=== PATIENT | female | born 1990 | race Caucasian/White ===

== ENCOUNTER 2023-04-12 21:46 | Emergency (ER) | payer BC ==
[2023-04-12 22:12] LABS: EOSINOPHILS ABSOLUTE AUTO 0.2 K/mm3 (0.0-0.4); EOSINOPHILS PERCENT AUTO 2.2 % (0.0-6.0); HEMOGLOBIN 13.7 gm/dl (12.0-16.0); IMMATURE GRAN ABSOLUTE AUTO 0.02 K/mm3 (0.00-0.05); IMMATURE GRAN PERCENT AUTO 0.2 % (0.0-0.4); LYMPHOCYTES ABSOLUTE AUTO 2.6 K/mm3 (1.0-4.8); LYMPHOCYTES PERCENT AUTO 32.6 % (24.0-44.0); MEAN CORPUSCULAR HEMOGLOBIN 30.3 pg (28.0-32.0); MEAN CORPUSCULAR HGB CONC 35.1 g/dl (32.0-36.0); MEAN CORPUSCULAR VOLUME 86.3 fl (83.0-99.0); MEAN PLATELET VOLUME 8.3 fl (9.4-12.3); MONOCYTES ABSOLUTE AUTO 0.4 K/mm3 (0.0-0.8); MONOCYTES PERCENT AUTO 5.3 % (0.0-8.0); NEUTROPHILS ABSOLUTE AUTO 4.8 K/mm3 (1.8-7.7); NEUTROPHILS PERCENT AUTO 59.7 % (41.0-71.0); PLATELET COUNT,PLT 300 K/mm3 (150-400); RED BLOOD CELL COUNT 4.52 M/mm3 (4.10-5.30); WHITE BLOOD CELL COUNT,WBC 8.06 K/mm3 (3.9-11.3)
[2023-04-12 22:36] LABS: A/G RATIO 1.1 (1-2); ANION GAP 12.3 (5-15); BILIRUBIN TOTAL 0.2 mg/dL (0.2-1.0); CALCIUM 9.5 mg/dL (8.5-10.1); CREATININE 0.6 mg/dL (0.55-1.02); EST CRCL DRUG DOSING (CG) 129.69 mL/min; POTASSIUM,K 3.3 mEq/L (3.5-5.1); PROTEIN TOTAL,TP 7.7 g/dl (6.4-8.2)
== END 2023-04-12 23:15 | disposition home or self-care (01) ==
LOC: JD.ED 21:46
DX: O20.9 Hemorrhage in early pregnancy, unspecified (principal); Z86.16 Personal history of COVID-19; Z3A.08 8 weeks gestation of pregnancy
CPT/HCPCS: 36415; 76817; 76817-26; 80053; 84702; 85025; 86900; 86901; 99282; 99284

== ENCOUNTER 2023-11-11 11:15 | Inpatient (IN) | payer BC ==
[2023-11-11] MEDS ORDERED: Sodium Chloride 0.9% 10 ML Syringe FLUSH PRN (13:11)
[2023-11-11] MEDS ORDERED: Lidocaine 1% 50 ML MDV INJECT PRN (13:11)
[2023-11-11] MEDS ORDERED: Nalbuphine 10 MG/ML Syringe IVPUSH PRN (13:11)
[2023-11-11] MEDS ORDERED: Oxytocin/Lactated Ringers 30 UNIT/500 ML BAG IV SCH (13:15)
[2023-11-11 13:42] LABS: BASOPHILS PERCENT AUTO 0.1 % (0.0-1.0); HEMATOCRIT 37.9 % (37.0-47.0); HEMOGLOBIN 12.9 gm/dl (12.0-16.0); IMMATURE GRAN ABSOLUTE AUTO 0.03 K/mm3 (0.00-0.05); IMMATURE GRAN PERCENT AUTO 0.3 % (0.0-0.4); LYMPHOCYTES ABSOLUTE AUTO 1.5 K/mm3 (1.0-4.8); LYMPHOCYTES PERCENT AUTO 14.1 % (24.0-44.0); MEAN CORPUSCULAR HEMOGLOBIN 30.8 pg (28.0-32.0); MEAN CORPUSCULAR VOLUME 90.5 fl (83.0-99.0); MEAN PLATELET VOLUME 9.7 fl (9.4-12.3); MONOCYTES ABSOLUTE AUTO 0.4 K/mm3 (0.0-0.8); NEUTROPHILS ABSOLUTE AUTO 8.4 K/mm3 (1.8-7.7); NEUTROPHILS PERCENT AUTO 81.5 % (41.0-71.0); PLATELET COUNT,PLT 193 K/mm3 (150-400); RED BLOOD CELL COUNT 4.19 M/mm3 (4.10-5.30); WHITE BLOOD CELL COUNT,WBC 10.35 K/mm3 (3.9-11.3)
[2023-11-11] MEDS: Oxytocin/Lactated Ringers 30 UNIT/500 ML BAG IV SCH (15:26)
[2023-11-11] MEDS: Lactated Ringers 1,000 ML IV SCH (15:26)
[2023-11-11] MEDS ORDERED: ePHEDrine 50 MG/ML SDV IVPUSH PRN (18:52)
[2023-11-11] MEDS ORDERED: diphenhydrAMINE 50 MG/ML SDV IVPUSH PRN (18:52)
[2023-11-11] MEDS: Bupivacaine/fentaNYL/NS 100 ML Bag EPIDUR PRN (18:58)
[2023-11-11] MEDS: fentaNYL 100 MCG/2 ML SDV EPIDUR PRN (18:58)
[2023-11-12] MEDS ORDERED: Bupivacaine 0.25% 10 ML SDV ONE
[2023-11-12] MEDS: Ondansetron 4 MG/2 ML SDV IVPUSH PRN (01:28)
[2023-11-12] MEDS ORDERED: Witch Hazel Medicated Pads 40/Jar TOP PRN (05:47)
[2023-11-12] MEDS ORDERED: Benzocaine/Menthol 20%-0.5% Spray 78 GM Cannister TOP PRN (05:47)
[2023-11-12] MEDS: Ibuprofen 600 MG Tab PO SCH (08:29)
[2023-11-12] MEDS: Acetaminophen 325 MG Tab PO PRN (11:54)
[2023-11-13] MEDS: Docusate Sodium 100 MG Cap PO PRN (10:36)
== END 2023-11-13 18:00 | disposition home or self-care (01) | DRG 560 ==
LOC: JD.OBCHECK 11:15 → JD.OB 11:20 → JD.OBCHECK 13:15 → JD.OB 13:15 → OBSVTOIN 11-12 03:18 → JD.OB 11-12 03:19
PROVIDERS: ADMIT Obstetrics & Gynecology; ATTEND Obstetrics & Gynecology
PROC: 10D07Z6 Extraction of Products of Conception, Vacuum, Via Natural or Artificial Opening (ICD-10-PCS; principal; 2023-11-12)
PROC: 3E0R3BZ Introduction of Anesthetic Agent into Spinal Canal, Percutaneous Approach (ICD-10-PCS; 2023-11-12)
PROC: 00HU33Z Insertion of Infusion Device into Spinal Canal, Percutaneous Approach (ICD-10-PCS; 2023-11-12)
PROC: 0KQM0ZZ Repair Perineum Muscle, Open Approach (ICD-10-PCS; 2023-11-12)
PROC: 3E0334Z Introduction of Serum, Toxoid and Vaccine into Peripheral Vein, Percutaneous Approach (ICD-10-PCS; 2023-11-12)
DX: O42.02 Full-term premature rupture of membranes, onset of labor within 24 hours of rupture (principal); Z37.0 Single live birth; Z3A.39 39 weeks gestation of pregnancy; O70.1 Second degree perineal laceration during delivery; O26.893 Other specified pregnancy related conditions, third trimester; Z67.41 Type O blood, Rh negative
CPT/HCPCS: 36415; 51701; 51702; 59025; 59409; 84112; 85025; 85461; 86592; 86850; 86870; 86900; 86901; A9270-GY; J0665; J2405; J2790; J3010; J3490; J7120; J7999